=== PATIENT | female | born 1985 | race Caucasian/White ===

== ENCOUNTER → 2017-09-18 | Outpatient (CLI) | payer OTHER ==
[~2017-09-18] MED LIST: FIBER GUMMIES; STOOL SOFTENER50 MG PO; ZYRTEC10 MG PO; [UNRECOGNIZED DRUG - OTHER] RC
--- NOTE | 2017-09-18 12:27 | Diagnostic Imaging Report ---
TECHNIQUE: Magnetic resonance imaging of the right ANKLE was performed WITHOUT injected contrast. COMPARISON: None available. HISTORY: ankle pain FINDINGS: LIGAMENTS: Medial Complex: Contusion of the deltoid. Lateral Complex: Tibiofibular ligaments intact. Partial tearing of the anterior talofibular ligament and calcaneofibular ligament. TENDONS: Medial: Intact Lateral: Reactive tenosynovitis. Retinaculum intact. Anterior: Intact Achilles: Intact BONES: No focal or infiltrative bone marrow replacing abnormality. No acute fracture or osteonecrosis. JOINTS: Cartilage: No focal defect is identified involving the tibiotalar joint. Other: Fluid within the joints is within physiologic limits. SOFT TISSUES: Soft tissue swelling/edema anterolateral ankle. IMPRESSION: Ankle inversion injury with partial tearing of the lateral ankle ligaments and contusion of the deltoid/medial talus. Reactive tenosynovitis of the peroneal tendons. Signed by: Dr. Hemal Clemente M.D. on 09/18/2017 12:23 PM
== END ==
LOC: MRI 10:28
PROVIDERS: ATTEND Specialist
DX: S93.491A Sprain of other ligament of right ankle, initial encounter (principal)
CPT/HCPCS: 81025